=== PATIENT | female | born 1995 | race Caucasian/White ===

== ENCOUNTER 2021-04-25 10:03 | Emergency (ER) | payer BC, SELFPAY ==
--- NOTE | 2021-04-25 10:12 | ED.URI ---
HPI - URI/Sore Throat General Chief Complaint: Upper Respiratory Infection Stated Complaint: sore throat Time Seen by Provider: 04/25/21 10:16 Source: patient, RN notes reviewed and old records reviewed Mode of arrival: ambulatory Limitations: no limitations History of Present Illness HPI Narrative: 26-year-old female who presents to [facility] with complaints of sore throat since last night with some nasal drainage. Patient reports that she also has noted some white spots on the back of her throat on the right side. Patient states history of seasonal allergies and has had some nasal drainage increase, takes daily nasal sprays and also takes Zyrtec as needed. Patient states she has had tonsillectomy and adenoidectomy at age 11 but has had strep throat since having surgery. Patient reports she has been vaccinated for Contix vaccine x2 doses. Patient denies any fever chills or body aches denies any cough or any shortness of breath. MD elicited complaint: sore throat and rhinorrhea Pertinent past history: seasonal allergies and other (strep pharyngitis, sinus drainage) Onset (ago): day(s) (1) Description of mucous: clear Able to tolerate fluids by mouth: Yes Exacerbating factors: swallowing Treatments prior to arrival: none Related Data Home Medications Medication Instructions Recorded Confirmed Flonase 04/25/21 amlodipine 04/25/21 Allergies Allergy/AdvReac Type Severity Reaction Status Date / Time Penicillins Allergy Unknown Verified 04/25/21 10:15 Review of Systems Review of Systems: CONSTITUTIONAL: Denies fever, chills, or sweats. EYES: Denies visual changes, redness, or discharge. ENT: Positive for rhinorrhea, congestion, sore throat, no otalgia. CARDIOVASCULAR: Denies chest pain, palpitations, or edema. RESPIRATORY: Denies cough or dyspnea. GASTROINTESTINAL: Denies abdominal pain, nausea, vomiting, or diarrhea. GENITOURINARY: Denies dysuria or hematuria. SKIN: Denies rash or itching. MUSCULOSKELETAL: Denies back pain, joint pain, or myalgia. NEUROLOGIC: Denies headache, numbness, or weakness. PSYCHIATRIC: Positive for history of anxiety or depression. All systems reviewed & are unremarkable except as noted in HPI and below PMFSH Past Medical History Medical History (Updated 04/25/21 @ 10:34 by Rayne Dickey NP) Anxiety Hypertension Seasonal allergies Surgical History Surgical History (Updated 04/25/21 @ 10:32 by Rayne Dickey NP) History of tonsillectomy and adenoidectomy Hx of nasal septoplasty with rhinoplasty Family History Family History (Updated 04/25/21 @ 10:42 by Rayne Dickey NP) Father Hypertension Crohn's disease of both small and large intestine Mother Hypertension Breast cancer Grandparent Heart disease Social History Social History (Updated 04/25/21 @ 10:42 by Rayne Dickey NP) Smoking status: Never smoker Alcohol intake: current Alcohol use details: social Substance use: never Living arrangements: with family Gender identity (if verbalized by the patient): Female Comments At time of signature, agree with nursing past medical, surgical, social and family history. There is no relevant family history pertinent to the presenting complaint Exam Narrative: GENERAL: Well-appearing, well-nourished, and in no acute distress. HEAD: Normocephalic, atraumatic. EYES: PERRLA and EOMI. ENT: Nares patent with clear rhinorrhea no epistaxis. Mucous membranes moist.TM's normal with good light reflex. throat red with white exudates to back of right side of throat, tonsils absent. NECK: Supple. no lymphadenopathy CHEST: Clear to auscultation. No respiratory distress.SAO2 100% on room air, no cough or any shortness of breath. HEART: Regular rate and rhythm. No murmur heard. Normal peripheral pulses. ABDOMEN: Soft, nontender, nondistended, normal active bowel sounds. EXTREMITIES: Normal range of motion. No edema. SKIN: Warm, dry, no rash. NEURO:
[2021-04-25 10:18] VITALS: BP 149/94; PULSE 119; RESP 18; TEMP 36.8; O2SAT 100
== END 2021-04-25 10:41 | disposition home or self-care (01) ==
PROVIDERS: Emergency Provider Registered Nurse
DX: J02.9 Acute pharyngitis, unspecified (principal); I10 Essential (primary) hypertension
CPT/HCPCS: 87081; 87880; 99213; G0463

== ENCOUNTER 2021-07-31 09:09 | Outpatient (CLI) | payer BC, SELFPAY ==
[2021-07-31 09:52] LABS: Beta HCG Quantitative 156.64 mIU/ML
== END 2021-07-31 09:10 | disposition home or self-care (01) ==
LOC: ANHLAB 09:10
PROVIDERS: PCP Family Medicine; Visit Provider Obstetrics & Gynecology
DX: N91.2 Amenorrhea, unspecified (principal)
CPT/HCPCS: 36415; 84702

== ENCOUNTER 2021-08-04 18:51 | Emergency (ER) | payer BC, SELFPAY ==
--- NOTE | 2021-08-04 18:53 | ED.FEMALEGU ---
HPI - Female Genitourinary General Chief complaint: Urogenital-Female Stated complaint: UTI SYMPTOMS Time Seen by Provider: 08/04/21 19:06 Source: patient Mode of arrival: ambulatory Limitations: no limitations History of Present Illness HPI Narrative: Mrs. Robles is a 26-year-old female patient presenting to the clinic today with complaints of possible UTI. She reports she has urinary frequency, dark urine, and blood in her urine. She is currently 4 weeks . Also reports some mild abdominal cramping a couple days. Reports that the abdominal cramping only occurs at nighttime when she is laying down on her left side. States that she wiped today after urinating she had a little spot of blood on the toilet paper. Thinks that the blood is coming from her urethra and not her vagina. Denies any active vaginal bleeding or abdominal cramping currently. Related Data Home Medications Medication Instructions Recorded Confirmed azelastine 137 mcg (0.1 %) nasal 137 mcg INTRANASAL Q12H 06/03/21 07/08/21 spray aerosol fluticasone propionate 50 1 spray INTRANASAL DAILY 06/03/21 07/08/21 mcg/actuation nasal spray,suspension amlodipine 5 mg tablet 5 mg PO DAILY 07/08/21 07/08/21 Allergies Allergy/AdvReac Type Severity Reaction Status Date / Time Penicillins Allergy Unknown Verified 07/08/21 16:28 Review of Systems Review of Systems: Pertinent positives per HPI. Patient denies any fever, chills, rash, headache, visual changes, dizziness, cough, runny nose, sore throat, shortness of breath, chest pain, palpitations, nausea, vomiting, diarrhea, constipation, or blood in stool. [facility] Past Medical History Medical History Anxiety Hypertension Ovarian dysfunction Seasonal allergies Surgical History Surgical History History of tonsillectomy and adenoidectomy Hx of nasal septoplasty with rhinoplasty Family History Family History Father Hypertension Crohn's disease of both small and large intestine Mother Hypertension Breast cancer Grandparent Heart disease Social History Social History Social History: Smoking status: Never smoker Alcohol intake: current Drinks per week: 2 Substance use: never Substance use type: does not use Gender identity (if verbalized by the patient): Female Sexual Orientation (if Verbalized by the Patient): Straight or Heterosexual Comments At the time of my signature, I reviewed and agree with the nursing past medical, surgical, social, and family history. There is no relevant family history pertinent to the patient complaint. Exam Narrative: General: Well-developed, well nourished, in no apparent distress. Cardio: Regular rate and rhythm, s1 and s2 normal, no murmur appreciated. Resp: Clear to auscultation bilaterally, no rhonchi, rales, wheezing or rubs. Abdomen: Soft, pliable, bowel sounds present in all quadrants, non-tender to palpation, no organomegly, no suprapubic tenderness or pain over the adnexa, no CVAT tenderness. Course Course Emergency Course: Portions of this record may have been created with voice recognition software. Level of Care: Express Care Visit Vital Signs Vital signs: Vital signs reviewed MDM - Female Genitourinary MDM Narrative Medical decision making narrative: On assessment patient is nontoxic-appearing and resting comfortably. UA dip was completed and was negative for blood, protein, leukocytes, or nitrates. Specific gravity was 1.020. When further interviewing the patient she reports she noted some blood in her underwear today near where her urethra is so she is convinced that this is not coming from her vagina. She denies any abdominal pain or cramping at this time. S
[2021-08-04 19:00] VITALS: BP 157/88; PULSE 121; RESP 18; TEMP 36.9; O2SAT 100
== END 2021-08-04 19:25 | disposition home or self-care (01) ==
PROVIDERS: Emergency Provider Nurse Practitioner Family; PCP Family Medicine
DX: O46.91 Antepartum hemorrhage, unspecified, first trimester (principal); Z3A.01 Less than 8 weeks gestation of pregnancy; O10.911 Unspecified pre-existing hypertension complicating pregnancy, first trimester
CPT/HCPCS: 81003; 99212; G0463

== ENCOUNTER 2021-08-17 16:02 | Outpatient (CLI) | payer BC, SELFPAY ==
--- NOTE | ~2021-08-17 | US_ITS ---
EXAMINATION: US OB <=14 wk fetus w TV DATE: 08/17/2021 16:48 INDICATION: Status post dating of during first trimester TECHNIQUE: Real-time pelvic ultrasound utilizing both a transvaginal and transabdominal probe was pe rformed. The interpreting radiologist was not present for the study. COMPARISON: None. FINDINGS: The uterus measures 8.0 x 4.8 x 4.9 cm. There is an intrauterine gestational sac. A yolk sac and fet al pole are identified. The crown rump length measures 4 mm, which correlates with an estimated gesta tional age of 6 weeks and 0 days. heart motion is identified measuring 101 beats per minute (bp m) by M-mode Doppler. The right ovary measures 3.4 x 1.9 x 2.1 cm. The left ovary measures 3.3 x 2.0 x 2.4 cm. Vascular moose w with arterial waveforms identified in both ovaries on color Doppler. There is no free fluid in the pelvis. IMPRESSION: 1. Single living fetus with heart rate of 101 bpm. 2. Gestational age by ultrasound of 6 weeks 0 day(s) +/- 4 day(s) with ultrasound estimated date of delivery (JEFF) of 06/12/2021. Reviewed, dictated and finalized at location A. IMPRESSION: 1. Single living fetus with heart rate of 101 bpm. 2. Gestational age by ultrasound of 6 weeks 0 day(s) +/- 4 day(s) with ultraso und estimated date of delivery (JEFF) of 06/12/2021.
== END 2021-08-17 16:03 | disposition home or self-care (01) ==
LOC: ANHIMG 16:03
PROVIDERS: PCP Family Medicine; Visit Provider Obstetrics & Gynecology
DX: Z34.91 Encounter for supervision of normal pregnancy, unspecified, first trimester (principal); Z3A.01 Less than 8 weeks gestation of pregnancy
CPT/HCPCS: 76801; 76817

== ENCOUNTER 2021-08-26 16:22 | Outpatient (CLI) | payer BC, SELFPAY | END 2021-08-26 16:23 | disposition home or self-care (01) | LOC: ANHLAB 16:23 | PROVIDERS: PCP Family Medicine; Visit Provider Obstetrics & Gynecology | DX: O20.0 Threatened abortion (principal) | CPT/HCPCS: 36415; 86850; 86900; 86901 ==

== ENCOUNTER 2021-09-02 15:18 | Outpatient (CLI) | payer BC, SELFPAY ==
--- NOTE | ~2021-09-02 | US_ITS ---
US OB <=14 wk fetus w TV DATE: 09/02/2021 15:48 INDICATION: Threatened TECHNIQUE: Real-time imaging and Doppler analysis COMPARISON: 08/17/2021 obstetrical ultrasound examination FINDINGS: Live singh intrauterine gestation. pole and yolk sac are identified. [place]-rump l ength of 1.4 cm, consistent with 8 weeks 2 days +/- 5 days estimated gestational age. heart rat e of 171 bpm. Right ovary 2.7 x 2.0 x 2.0 cm. Left ovary 2.8 x 1.7 x 2.9 cm. No pelvic mass or abnormal pelvic fluid collection is detected. IMPRESSION: Estimated gestational age of 8 weeks 2 days +/- 5 days Reviewed, dictated and finalized at Location [facility]. Reviewed, dictated and finalized at location A.
== END 2021-09-02 15:19 ==
PROVIDERS: Visit Provider Student in an Organized Health Care Education/Training Program
DX: O20.0 Threatened abortion (principal); Z3A.00 Weeks of gestation of pregnancy not specified
CPT/HCPCS: 76801; 76817

== ENCOUNTER → 2021-09-17 01:25 | Outpatient (CLI) | payer BC, SELFPAY ==
[2021-09-17 11:02] LABS: Influenza A QL RT-PCR Negative (Negative); Influenza B QL RT-PCR Negative (Negative); SARS-CoV-2 RNA PCR Negative
== END ==
PROVIDERS: PCP Family Medicine; Visit Provider Family Medicine
DX: R68.89 Other general symptoms and signs (principal); Z20.822 Contact with and (suspected) exposure to COVID-19
CPT/HCPCS: 87502; C9803; U0003; U0005

== ENCOUNTER 2021-09-21 15:52 | Outpatient (CLI) | payer BC, SELFPAY ==
--- NOTE | ~2021-09-21 | US_ITS ---
US OB <=14 wk fetus w TV DATE: 09/21/2021 16:45 INDICATION: Vaginal spotting complicating first trimester TECHNIQUE: Real-time imaging via transabdominal approach COMPARISON: September 02, 2021 obstetrical ultrasound FINDINGS: The uterus measures 14.7 cm height, 6.3 cm anteroposterior and 10 cm transverse dimension. An intrauterine gestational sac is noted, normally shaped, with posterior placenta. Normal amount of amniotic fluid. A pole is noted, with movement and cardiac motion; Doppler heart rate ave rages 163 bpm. There is an approximately 1.9 x 2.3 x 1.6 cm posteroinferior subchorionic hematoma No adnexal mass or abnormal free pelvic fluid collection is detected. IMPRESSION: 1.9 x 2.3 x 1.6 mm subchorionic hematoma Reviewed, dictated and finalized at [facility]. Reviewed, dictated and finalized at location A.
== END 2021-09-21 15:53 | disposition home or self-care (01) ==
LOC: ANHIMG 15:54
PROVIDERS: PCP Family Medicine; Visit Provider Student in an Organized Health Care Education/Training Program
DX: O26.851 Spotting complicating pregnancy, first trimester (principal); Z3A.00 Weeks of gestation of pregnancy not specified
CPT/HCPCS: 76801; 76817

== ENCOUNTER 2021-10-10 13:44 | Emergency (ER) | payer BC, SELFPAY ==
[2021-10-10 13:46] VITALS: BP 141/81; PULSE 80; RESP 18; TEMP 36.5; O2SAT 100
[2021-10-10 14:05] VITALS: BP 127/73; PULSE 81; RESP 20; O2SAT 100
--- NOTE | 2021-10-10 14:10 | ED.GENADULT ---
HPI - General Adult General Chief complaint: Recheck/Abnormal Lab/Rx Stated complaint: my bp dropped really low, 14 weeks preg Time Seen by Provider: 10/10/21 13:54 Source: patient, family, EMS and RN notes reviewed Mode of arrival: EMS Limitations: no limitations History of Present Illness HPI narrative: Patient is 26 years old white female 13 weeks and 5 days , 1, para 0, abortions 0 history of anxiety and panic attack, currently on Lexapro. Patient was sitting suddenly started feeling hot, stood up and could not see straight and feels like she is going to blackout. Patient took her blood pressure and was 60/40, called her to call 911. Ambulance arrived, blood pressure was within normal limit. Blood pressure was on arrival to the emergency room 141/81 Related Data Home Medications Medication Instructions Recorded Confirmed prenat.vits,janae,wtg-ezkf-wgzum 1 tablet PO DAILY 08/10/21 08/10/21 ferrous sulfate 325 mg (65 mg 325 mg PO DAILY 09/14/21 iron) tablet,delayed release labetalol 100 mg tablet 100 mg PO Q12H 09/14/21 Allergies Allergy/AdvReac Type Severity Reaction Status Date / Time Penicillins Allergy Unknown Rash, Verified 10/10/21 14:05 swelling nifedipine AdvReac Palpitation Verified 10/10/21 14:05 s Review of Systems Review of Systems: All systems reviewed & are unremarkable except as noted in HPI and below PMFSH Past Medical History Medical History Anxiety Depression Hyperlipidemia Hypertension Panic disorder Seasonal allergies Surgical History Surgical History History of tonsillectomy and adenoidectomy 2006 Hx of nasal septoplasty 2020, with rhinoplasty [place] teeth extracted Family History Family History Father Hypertension Crohn's disease of both small and large intestine Alcoholism Mother Hypertension Breast cancer Dx age 18 Alcoholism Anxiety and depression Grandparent Heart disease Anxiety and depression Hypertension Sibling Anxiety and depression PCOS (polycystic ovarian syndrome) Social History Social History Social History: Smoking status: Never smoker Alcohol intake: former Drinks per week: 2 Substance use: never Gender identity (if verbalized by the patient): Female Sexual Orientation (if Verbalized by the Patient): Straight or Heterosexual Agree to blood products: Yes Exam Narrative: General appearance: Well-developed, well-nourished Skin: Normal color Head: Normocephalic, nontraumatic Eyes: Clear conjunctiva ENT: Oropharynx normal, ears normal, nose normal Neck: Supple, nontender Chest and respiratory: Airway patent, no respiratory distress, no accessory muscle use Heart: Regular rate/rhythm Abdomen: Soft, nontender, no organomegaly, quiet bowel sounds Vascular: Normal peripheral pulses, normal capillary refill. Musculoskeletal: Normal range of motion, nontender back Neurologic: Alert and oriented ?3, HEALTH AND SAFETY TECHNICIAN is normal as tested, no gross motor deficit Course Course Emergency Course: Improved Panic attack is my concern. Patient likely could not see the number of the blood pressure accurately. The ambulance arrived within 3 to 5 minutes after her blood pressure reading and EMT reported that blood pressure was normal on arrival to her house. Vital Signs Vital signs: Vital Signs Temperature 36.5 C 10/10/21 13:46 Pulse Rate 80 10/10/21 13:46 Respiratory Rate 18 10/10/21 13:46 Bloo
--- NOTE | 2021-10-10 14:12 | ECG_ITS ---
Measurements Intervals [place] Rate: 78 P: 6 [place]: 142 QRS: 1 QRSD: 90 T: -3 QT: 384 QTc: 439 Interpretive Statements SINUS RHYTHM LOW QRS VOLTAGE IN PRECORDIAL LEADS CONSIDER INFERIOR INFARCT, AGE INDETERMINATE BORDERLINE T WAVE ABNORMALITY- ANTEROLATERAL LEADS BASELINE ARTIFACT- I, II, III, AVR, AVL, AVF, V1, V4-V5 ABNORMAL ECG Electronically Signed On 10-10-2021 20:10:21 CDT by Bird Quarles D.O.
[2021-10-10 14:39] LABS: Basophils Percent Auto 0.3 % (0.2-1.2); Eosinophils Absolute Auto 0.1 K/mm3 (0-0.3); Eosinophils Percent Auto 0.7 % (0-4.4); Hematocrit 30.5 % (37.0-47.0); Hemoglobin 10.8 g/dL (12.0-15.0); Immature Granulocyte Absolute 0.03 K/mm3 (0.00-0.031); Immature Granulocyte Percent A 0.3 % (0-0.5); Lymphocytes Absolute Auto 1.27 K/mm3 (0.9-3.2); Lymphocytes Percent Auto 14.7 % (18.3-44.2); Mean Corpuscular HGB Conc 35.4 g/dl (32-36); Mean Corpuscular Hemoglobin 30.4 pg (26-34); Mean Corpuscular Volume 85.9 fl (80-100); Mean Platelet Volume 9.9 fl (7.4-10.4); Monocytes Absolute Auto 0.6 K/mm3 (0.1-0.6); Monocytes Percent Auto 6.6 % (2.6-8.5); Neutrophils Absolute Auto 6.7 K/mm3 (1.3-6.7); Neutrophils Percent Auto 77.4 % (45.5-73.1); Platelet Count Result 242 k/mm3 (150-375); Red Blood Count 3.55 M/mm3 (4.2-5.4); Red Cell Distribution Width 12.8 % (11.5-14.5); White Blood Count 8.7 K/mm3 (4.5-10.0)
[2021-10-10] MEDS: SODIUM CHLORIDE 0.9% IV 1,000 ML 999 ML IV CONT (14:52)
[2021-10-10 14:56] LABS: Appearance Urine Clear (Clear); Bilirubin Urine Negative (Negative); Blood Urine Negative (Negative); Color Urine Yellow (Yellow); Glucose Urine UA Negative (Negative); Ketones Urine Negative (Negative); Leukocyte Esterase Ur Trace LEU/UL (Negative); Nitrate Urine Negative (Negative); Protein Urine Negative (Negative); Urobilinogen Urine 0.2 mg/dL (<2.0); pH Urine 6.5 (5.0-9.0)
[2021-10-10 14:58] LABS: Alanine Aminotransferase 9 U/L (6-35); Albumin Level 4.1 g/dL (3.5-5.1); Alkaline Phosphatase 62 U/L (38-126); Anion Gap 8 mmol/L (8-16); Aspartate Amino Transferase 20 U/L (14-36); Bilirubin,Total 0.3 mg/dL (0.2-1.3); Blood Urea Nitrogen 4 mg/dL (7-17); Calcium 8.8 mg/dL (8.4-10.2); Carbon Dioxide 19 mmol/L (22-30); Chloride 108 mmol/L (98-107); Estimated Glomerular Filt Rate > 60; Glucose 96 mg/dL (65-110); Potassium 3.6 mmol/L (3.4-5.0); Sodium 135 mmol/L (137-145)
[2021-10-10 15:01] LABS: Bacteria Urine Trace /hpf; Mucus Urine Rare /lpf; RBC Urine 0-2 /hpf (0-2); Squamous Epithelial Cell Urine Few /hpf (Few); WBC Urine 0-3 /hpf
[2021-10-10 15:02] LABS: Add Urine Microscopic? YES
== END 2021-10-10 15:56 | disposition home or self-care (01) ==
PROVIDERS: Emergency Provider Emergency Medicine; PCP Family Medicine
DX: O99.341 Other mental disorders complicating pregnancy, first trimester (principal); F41.0 Panic disorder [episodic paroxysmal anxiety]; F32.A Depression, unspecified; O10.911 Unspecified pre-existing hypertension complicating pregnancy, first trimester; O99.281 Endocrine, nutritional and metabolic diseases complicating pregnancy, first trimester; E78.5 Hyperlipidemia, unspecified; Z3A.13 13 weeks gestation of pregnancy
CPT/HCPCS: 36415; 80053; 81001; 85025; 93005; 96360; 99283; J7030

== ENCOUNTER 2021-11-09 17:01 | Outpatient (CLI) | payer BC, SELFPAY ==
[2021-12-10 10:38] LABS: hCG MoM 1.52
[2021-12-10 10:46] LABS: Number of Fetuses 1
[2021-12-10 10:48] LABS: Cigarette Smoker N
[2021-12-10 10:49] LABS: IVFPREG? N
== END 2021-11-09 17:02 | disposition home or self-care (01) ==
LOC: ANHLAB 17:02
PROVIDERS: PCP Family Medicine; Visit Provider Obstetrics & Gynecology
DX: Z34.02 Encounter for supervision of normal first pregnancy, second trimester (principal); Z3A.00 Weeks of gestation of pregnancy not specified
CPT/HCPCS: 36415; 82105; 82677; 84702; 86336

== ENCOUNTER 2022-01-15 07:31 | Outpatient (CLI) | payer BC, SELFPAY ==
[2022-01-15 09:07] LABS: Hematocrit 30.2 % (37.0-47.0); Hemoglobin 10.4 g/dL (12.0-15.0); Mean Corpuscular HGB Conc 34.4 g/dl (32-36); Mean Corpuscular Hemoglobin 30.6 pg (26-34); Mean Corpuscular Volume 88.8 fl (80-100); Mean Platelet Volume 10.4 fl (7.4-10.4); Platelet Count Result 228 k/mm3 (150-375); Red Cell Distribution Width 13.2 % (11.5-14.5); White Blood Count 10.7 K/mm3 (4.5-10.0)
[2022-01-15 09:22] LABS: Glucose 1 Hour PP 50gm Dose 148 mg/dL
[2022-01-15 10:17] LABS: HIV 1/2 Ab P24 Ag Result Negative (Negative)
== END 2022-01-15 07:32 | disposition home or self-care (01) ==
LOC: ANHLAB 07:32
PROVIDERS: PCP Family Medicine; Visit Provider Obstetrics & Gynecology
DX: Z34.90 Encounter for supervision of normal pregnancy, unspecified, unspecified trimester (principal)
CPT/HCPCS: 36415; 82947; 85027; 86703; G0432

== ENCOUNTER 2022-01-27 06:51 | Outpatient (CLI) | payer BC, SELFPAY ==
[2022-01-27 07:14] LABS: Glucose Fasting Gestational 80 mg/dL (>/=95)
[2022-01-27 08:35] LABS: Glucose 1 Hour Gest 204 mg/dL (>/=180)
[2022-01-27 09:50] LABS: Glucose 2 Hour Gest 165 mg/dL (>/= 155)
[2022-01-27 10:29] LABS: Glucose 3 Hour Gest 118 mg/dL (>/=140)
== END 2022-01-27 06:52 | disposition home or self-care (01) ==
LOC: ANHLAB 06:54
PROVIDERS: PCP Family Medicine; Visit Provider Obstetrics & Gynecology
DX: R73.09 Other abnormal glucose (principal)
CPT/HCPCS: 36415; 82951; 82952

== ENCOUNTER 2022-03-22 21:06 | Inpatient (IN) | payer BC, SELFPAY ==
[2022-03-22 21:22] VITALS: BP 157/106; PULSE 97; TEMP 36.6
[2022-03-22 21:31] VITALS: BP 146/90; PULSE 84
[2022-03-22 21:46] VITALS: BP 140/79; PULSE 85
[2022-03-22 21:52] VITALS: BMI 74.3
--- NOTE | 2022-03-22 22:00 | LDADM ---
This patient, Kae Robles, was admitted to Labor/Delivery/Recovery 106 on 03/22/22 at 21:06. Plans for labor, pain management and were discussed with patient. Patient/family oriented to hospital policies and general routines including ID bracelet, bed and alarms, visiting hours, pain management, procedures, bathroom and other care routines, personal items, smoking policy, room service/diet and guest tray routines, infant security routines, and visiting hours. Patient/Family are encouraged to report perceived risks to care and to ask questions if they do not understand what they are told or what they should do. See OBIX for further documentation.
[2022-03-22 22:01] VITALS: BP 139/80; PULSE 88
[2022-03-22 22:25] LABS: Basophils Absolute Auto 0.1 K/mm3 (0.0-0.1); Basophils Percent Auto 0.5 % (0.2-1.2); Eosinophils Absolute Auto 0.1 K/mm3 (0-0.3); Eosinophils Percent Auto 0.5 % (0-4.4); Hematocrit 35.4 % (37.0-47.0); Hemoglobin 12.3 g/dL (12.0-15.0); Immature Granulocyte Absolute 0.12 K/mm3 (0.00-0.031); Immature Granulocyte Percent A 1.1 % (0-0.5); Lymphocytes Absolute Auto 2.36 K/mm3 (0.9-3.2); Lymphocytes Percent Auto 22.2 % (18.3-44.2); Mean Corpuscular HGB Conc 34.7 g/dl (32-36); Mean Corpuscular Hemoglobin 30.7 pg (26-34); Mean Corpuscular Volume 88.3 fl (80-100); Monocytes Absolute Auto 0.6 K/mm3 (0.1-0.6); Neutrophils Absolute Auto 7.4 K/mm3 (1.3-6.7); Neutrophils Percent Auto 69.7 % (45.5-73.1); Platelet Count Result 242 k/mm3 (150-375); Red Blood Count 4.01 M/mm3 (4.2-5.4); Red Cell Distribution Width 13.9 % (11.5-14.5); White Blood Count 10.6 K/mm3 (4.5-10.0)
[2022-03-22 22:56] LABS: Alanine Aminotransferase 14 U/L (6-35); Albumin Level 3.9 g/dL (3.5-5.1); Alkaline Phosphatase 152 U/L (38-126); Anion Gap 11 mmol/L (8-16); Aspartate Amino Transferase 20 U/L (14-36); Bilirubin,Total 0.4 mg/dL (0.2-1.3); Blood Urea Nitrogen 9 mg/dL (7-17); Calcium 9.5 mg/dL (8.4-10.2); Carbon Dioxide 20 mmol/L (22-30); Chloride 105 mmol/L (98-107); Estimated Glomerular Filt Rate > 60; Glucose 99 mg/dL (65-110); Potassium 3.6 mmol/L (3.4-5.0); Sodium 136 mmol/L (137-145); Uric Acid 5.6 mg/dL (2.5-7.5)
[2022-03-22 23:17] VITALS: TEMP 36.4
[2022-03-22] MEDS: LACTATED RINGERS 1,000 ML 999 ML IV CONT (23:58)
[2022-03-23] VITALS (118 sets, daily range): BP systolic 98–162; BP diastolic 51–105; PULSE 72–138; RESP 16–20; TEMP 36.5–37; O2SAT 98–100
--- NOTE | 2022-03-23 00:30 | WPDANESEPP ---
Anes - Eval Pre Procedure Procedure: labor epidural Date/Time: 03/23/22 00:30 Pre Op Diagnosis: Leaking Patient Data Age: 26 Gender: F Height: 1.5 m Weight: 167 kg Last Vital Signs Temp 36.4 C 03/22/22 23:17 Pulse 88 03/22/22 22:01 BP 139/80 03/22/22 22:01 O2 Del Method Room Air 03/22/22 21:52 Allergies Allergy/AdvReac Type Severity Reaction Status Date / Time Penicillins Allergy Unknown Rash, Verified 03/22/22 22:10 swelling nifedipine AdvReac Palpitation Verified 03/22/22 22:10 s Home Medications Medication Instructions Recorded Confirmed Type prenat.vits,janae,vlp-wqqt-twila 1 tablet PO DAILY 08/10/21 03/22/22 History ferrous sulfate 325 mg (65 mg 325 mg PO DAILY 09/14/21 03/22/22 History iron) tablet,delayed release aspirin 81 mg tablet,delayed 81 mg PO DAILY 11/01/21 03/22/22 History release escitalopram oxalate 10 mg tablet 15 mg PO DAILY #45 tabs 01/10/22 03/22/22 Rx (Lexapro) Laboratory Tests 03/22/22 03/22/22 03/22/22 22:12 22:12 22:12 WBC 10.6 K/mm3 H K/mm3 (4.5-10.0) RBC 4.01 M/mm3 L M/mm3 (4.2-5.4) Hgb 12.3 g/dL g/dL (12.0-15.0) Hct 35.4 % L % (37.0-47.0) MCV 88.3 fl fl (80-100) MCH 30.7 pg pg (26-34) MCHC 34.7 g/dl g/dl (32-36) RDW 13.9 % % (11.5-14.5) Plt Count 242 k/mm3 k/mm3 (150-375) MPV 11.0 fl H fl (7.4-10.4) Immature Gran % (Auto) 1.1 % H % (0-0.5) Neut % (Auto) 69.7 % % (45.5-73.1) Lymph % (Auto) 22.2 % % (18.3-44.2) Sunflower % (Auto) 6.0 % % (2.6-8.5) Eos % (Auto) 0.5 % % (0-4.4) Baso % (Auto) 0.5 % % (0.2-1.2) Lymph # (Auto) 2.36 K/mm3 K/mm3 (0.9-3.2) Sunflower # (Auto) 0.6 K/mm3 K/mm3 (0.1-0.6) Eos # (Auto) 0.1 K/mm3 K/mm3 (0-0.3) Baso # (Auto) 0.1 K/mm3 K/mm3 (0.0-0.1) Abs Immat Gran (auto) 0.12 K/mm3 H K/mm3 (0.00-0.031) Absolute Neuts (auto) 7.4 K/mm3 H K/mm3 (1.3-6.7) Absolute Nucleated RBC 0.0 K/mm3 K/mm3 (0.0-0.012) Nucleated RBC % 0.0 % % (0.0-0.2) Sodium Potassium Chloride Carbon Dioxide Anion Gap BUN Creatinine Estim Creat Clear Calc Estimated GFR Glucose Uric Acid Calcium Total Bilirubin AST ALT Alkaline Phosphatase Total Protein Albumin RPR Pending Blood Type A Positive Antibody Screen Negative 03/22/22 22:12 WBC RBC Hgb Hct MCV MCH MCHC RDW Plt Count MPV Immature Gran % (Auto) Neut % (Auto) Lymph % (Auto) Sunflower % (Auto) Eos % (Auto) Baso % (Auto) Lymph # (Auto) Sunflower # (Auto) Eos # (Auto) Baso # (Auto) Abs Immat Gran (auto) Absolute Neuts (auto) Absolute Nucleated RBC Nucleated RBC % Sodium 136 mmol/L L mmol/L (137-145) Potassium 3.6 mmol/L mmol/L (3.4-5.0) Chloride 105 mmol/L mmol/L (98-107) Carbon Dioxide 20 mmol/L L mmol/L (22-30) Anion Gap 11 mmol/L mmol/L (8-16) BUN 9 mg/dL D mg/dL (7-17) Creatinine 0.50 mg/dL L mg/dL (0.7-1.0) Estim Creat Clear Calc Not Reportable Estimated GFR > 60 (59 - ) Glucose 99 mg/dL mg/dL (65-110) Uric Acid 5.6 mg/dL mg/dL (2.5-7.5) Calcium 9.5 mg/dL mg/dL (8.4-10.2) Total Bilirubin 0.4 mg/dL mg/dL (0.2-1.3) AST 20 U/L U/L (14-36) ALT 14 U/L U/L (6-35) Alkaline Phosphatase 152 U/L H U/L (38-126) Total Protein 7.0 g/dL g/dL (6.3-8.2) Albumin 3.9 g/dL g/dL (3.5-5.1) RPR Blood Type Antibod
[2022-03-23] MEDS: LACTATED RINGERS 1,000 ML 125 ML IV CONT (00:32)
[2022-03-23] MEDS: OXYTOCIN 30 UNITS/NS 500 ML 30 UNITS/500 ML BAG IV CONT (02:40)
--- NOTE | 2022-03-23 04:53 | WPDHPUPDATE1 ---
History and Physical Update Update Date/Time: 03/23/22 04:53 History and Physical has been reviewed, including an updated exam of the patient. There are NO changes in the patient's condition. Risks, benefits, and alternatives have been discussed and questions answered. Patient agrees to proceed with procedure.
--- NOTE | 2022-03-23 04:53 | WPDOBADMIT ---
Obstetrics - Admit Note Admission Note: record reviewed. No pertinent additions to the history and/or any subsequent changes in the physical findings that are not consistent with the expected course of the were found. Additions to the history and/or subsequent changes in the physical findings follow. None.
--- NOTE | 2022-03-23 04:53 | PM.OBPRVD ---
OB - Delivery Note Procedure Events: Chronic Hypertension and Gestational Diabetes Induction method: None Delivery augmentation: Pitocin Delivery monitor: External FHT and External Uterine Route of delivery: Episiotomy description: None Laceration Description: None Specimen: Yes Quantitative Blood Loss (ml): 200 Anesthesia type: Epidural Disposition: Floor Complications: None Narrative: patient prepped and draped in usual manner this procedure. Maternal expulsive efforts readily vertex with nuchal cord noted and delivered through. Rest of baby was delivered without difficulty. Cord clamped and the placenta delivered spontaneously. There was minimal bleeding and the uterus was well contracted. Cervix vagina vulva were inspected with no lacerations or tears. 2-3 center hematoma was on the perineum which was monitored and not changing. At this point the procedure was considered terminated with immediate possible operative condition of mother baby both excellent. [place] Baby Weeks of gestation at delivery: 37 gender: Female Weight (pounds): 6 Weight (ounces): 6 presentation: vertex Placenta delivery description: Spontaneous Cord Vessel Description: 3 Vessels score one minute: 7 score five minutes: 9
[2022-03-23] MEDS: WITCH HAZEL 40 PADS 1 PAD TOPICAL (07:04)
[2022-03-23] MEDS: BENZOCAINE 20% AER SPR (*SP) 56 GM CAN 1 SPRAY TOPICAL (07:04)
--- NOTE | 2022-03-23 07:25 | PC.NURSE ---
Patient transferred to post room #283 via (wheelchair ). Support person present. Oriented to unit, room, information board, rooming in, admission packet and security measures. Patient verbalizes understanding.
[2022-03-23] MEDS: MULTIVIT/MIN/PREN/FOL AC/IRON TABLET 1 TAB PO (08:02)
[2022-03-23] MEDS: DOCUSATE SODIUM 100 MG CAPSULE PO ×2 (08:02→16:01)
[2022-03-23] MEDS: ESCITALOPRAM OXALATE 5 MG TABLET 15 MG PO (08:02)
[2022-03-23] MEDS: LANOLIN (LANSINOH) 7.5 GM CREAM 1 APPLIC TOPICAL (08:03)
--- NOTE | 2022-03-23 09:22 | PC.NURSE ---
[id number] Introductions were made, then consulted with patient to assess needs related to . Mother led the conversation with infant is downstairs and she is pumping and not getting anything. Breast pump provided prior to meeting RN due to separation from . Instructions given on cleaning, care, usage, that there should be no pain, pumping schedule for milk production, collection, and storage of human milk. Reviewed for adequate milk production every 3 hours (8 times in 24 hours) 1-2 times at night. Resources provided for inpatient and outpatient services using a resource guide and mom/baby guide. Mother voiced understanding of information and will call if there is a request for assistance. Reported to primary RN.
[2022-03-23 15:05] LABS: Rapid Plasma Reagin Non-Reactive (NonReactive)
[2022-03-23] MEDS: IBUPROFEN 600 MG TABLET PO (17:14)
[2022-03-24] VITALS: BP 132/84; PULSE 82; RESP 16; TEMP 36.9; O2SAT 100
[2022-03-24 04:10] VITALS: BP 120/80; PULSE 72; RESP 16; TEMP 36.5; O2SAT 100
[2022-03-24 05:40] LABS: Hematocrit 30.8 % (37.0-47.0); Hemoglobin 10.3 g/dL (12.0-15.0)
[2022-03-24 06:05] VITALS: BP 152/96; PULSE 86
[2022-03-24] MEDS: IBUPROFEN 600 MG TABLET PO (06:05)
--- NOTE | 2022-03-24 06:05 | PC.NURSE ---
Pt states she is feeling a bit anxious this morning and requested bp be taken. Pt states she can tell when her anxiety rises and then her bp rises also. Pt states she was taking amlodipine 5mg qd prior to for her chronic htn and was switched to labetalol 100mg BID with . Currently, pt is not taking routine daily bp meds. Current bp 152/96, 86 Report given to BHARATI Monroe regarding pt's concerns and informed pt to also discuss with Dr. Brennan today on rounds if medication needs to be restarted.
[2022-03-24 07:30] VITALS: BP 117/72; PULSE 68; RESP 16; TEMP 36.3; O2SAT 100
--- NOTE | 2022-03-24 09:22 | WPDANLDPN2 ---
Anes-Prog Note L&D Date/Time: 03/24/22 09:22 Comfortable throughout: labor and delivery Neuraxial method: epidural Epidural/Spinal procedure site: clean & non-tender Neuro status: Neuro function grossly intact. Cardiovascular status: normal Respiratory status: normal Airway patency: baseline Mental status: baseline Post-Op hydration status: normal Vital Signs: Last Vital Signs Temp 36.3 C L 03/24/22 07:30 Pulse 68 03/24/22 07:30 Resp 16 03/24/22 07:30 BP 117/72 03/24/22 07:30 Pulse Ox 100 03/24/22 07:30 O2 Del Method Room Air 03/23/22 19:45 Pain score (VAS): 3 I/O: Intake & Output 03/23/22 03/24/22 03/24/22 23:59 07:59 15:59 Intake Total 480 Balance 480 Post-procedural complaints: none Patient feedback: Patient satisfied with anesthetic care.
[2022-03-24] MEDS: DOCUSATE SODIUM 100 MG CAPSULE PO (09:33)
[2022-03-24] MEDS: ESCITALOPRAM OXALATE 5 MG TABLET 15 MG PO (09:33)
[2022-03-24] MEDS: MULTIVIT/MIN/PREN/FOL AC/IRON TABLET 1 TAB PO (09:33)
[2022-03-24 10:41] VITALS: BP 140/82; PULSE 80; RESP 16; TEMP 36.5; O2SAT 100
--- NOTE | 2022-03-24 11:18 | P.PNOB_ITS ---
OB - PN: Subj Subjective Date/time seen: 03/24/22 11:18 26-year-old female post delivery day 1. No significant complaints or concerns this morning, minimal bleeding and no significant pain. Did have a little li ghtheadedness when bending over the bathroom this morning but this has resolved. Vital signs are stable afebrile Fundus appropriate Labs noted Routine care. Will monitor blood pressure she has had 1 or 2 elevated borderline pressures post delivery. No symptoms of elevated pressure. OB - PN: Obj Data Labs CBC & Chem 7: 03/24/22 04:17 03/22/22 22:12 Labs: Laboratory Results - last 24 hr 03/22/22 03/24/22 22:12 04:17 Hgb 10.3 L Hct 30.8 L RPR Non-reactive OB - PN A/P Time Spent With Patient Time: Total time spent is greater than 50% in coordination of care (as documented) at patient's floor/unit and/or counseling patient:
--- NOTE | 2022-03-24 13:30 | PC.NURSE ---
[id number] Introductions were made, then consulted with patient to assess needs related to . Mother led the conversation with her?plan to feed?her with attempting to breastfeed, pumping her breast for milk stimulation due to not latching, then supplementing with formula. Mother states her right nipple is inverted and pumping pulls it out and there is no pain just suction like. Resources provided for inpatient and outpatient services using a resource guide and mom/baby guide. Mother voiced understanding of information and will call if there is a request for assistance. Reported to the primary RN.
[2022-03-24 19:52] VITALS: BP 134/89; PULSE 80; RESP 18; TEMP 36.9; O2SAT 99
[2022-03-25 07:20] VITALS: BP 116/77; PULSE 74; RESP 16; TEMP 36.8; O2SAT 100
--- NOTE | 2022-03-25 08:00 | PC.NURSE ---
PT introductions made and plan of care discussed per post , daily care activities, pain management, breast/bottle feeding, pumping, and pending discharge to home. PT and spouse both received instructions per one to one discussion, mom baby care guide and demonstrations this shift. No barriers to learning identified at this time. PT verbalized understanding of such care.
[2022-03-25 09:00] VITALS: PULSE 74; RESP 16; O2SAT 100
[2022-03-25] MEDS: ESCITALOPRAM OXALATE 5 MG TABLET 15 MG PO (10:09)
[2022-03-25] MEDS: MULTIVIT/MIN/PREN/FOL AC/IRON TABLET 1 TAB PO (10:10)
[2022-03-25] MEDS: DOCUSATE SODIUM 100 MG CAPSULE PO (10:10)
--- NOTE | 2022-03-25 13:22 | PM.OBDSVD ---
DS: Admitting Diagnosis Discharge Date 03/25/2022 Admitting Diagnosis OB - DS: Summary OB Procedures : NST OB Procedures Intrapartum: Spontaneous Vag Delivery OB Procedures: : None Time Spent with Patient Time attestation: Total time spent providing and/or coordinating discharge services: DS: Data Data Completed and Pending Completed studies during hospitalization: Pending at discharge 03/23/22 05:11 Surgical [PTH] Routine Discharge Plan Discharge Discharging Clinician: Roddy Brennan Patient Disposition: Home, Self-Care Activity: as tolerated Diet: as tolerated Discharge Instructions: Education: Mom and Baby Guide Given to: Mother Follow-Up: Call your delivering provider's office for an appointment to be seen in: 4 Weeks Mom and baby [facility] for the follow-up appointment. Appointment Date/Time: March 26, 2022 at 9:00 am What to expect at your follow-up visit: Blood Pressure Check Call [phone] if you are unable to keep your appointment time. BREAST CARE: * Wear a snug supportive bra. * For engorgement discomfort: Breast Feeding: * Apply warm moist washcloths * Express milk as needed to relieve engorgement * Wear loose clothing Bottle Feeding: * May apply ice packs * For sore nipples: * Identify correct latch-on * Apply warm moist washcloths before and after nursing * Air dry nipples after nursing * May apply Lansinoh cream to nipples PERINEAL CARE: * Until bleeding stops, use your karena bottle after urinating * Change your pad frequently throughout the day * You may take sitz baths several times a day (fill your bathtub with warm water and soak for 20 minutes.) Do NOT bathe in the water * No tub baths until seen by your physician - You may shower ACTIVITY: * Rest as much as possible. * Do not exercise or lift anything heavier than your baby (such as laundry or other children.) * Avoid stairs or driving as much as possible. * Do not put anything into the vagina. No douching, tampons, or sexual activity until seen by physician. NOTIFY PHYSICIAN IF YOU HAVE ANY QUESTIONS OR IF ANY OF THE FOLLOWING SYMPTOMS OCCUR: * If your perineum becomes red, swollen, or more painful than what you have experienced in the hospital. * If your vaginal bleeding becomes foul smelling. * If your vaginal bleeding becomes more heavy than a period or if your bleeding changes from pink to bright red. However, you may pass an occasional walnut-sized clot once or twice for the first week . * If you experience a sharp, shooting pain in you calves. * If you discover a hard, reddened area on your breast or if you experience flu-like symptoms. * If you have a fever of 100.4 or greater DIET: * Eat regular, well-balanced meals. * Drink plenty of fluids daily. If , drink to thirst. Patient Instructions: Antibiotic Form Stand Alone Forms: General Discharge Information Follow-up/Referrals: Roddy Brennan MD [Physician] - 3 Weeks Discharge Medications: New ibuprofen 600 mg Tablet 600 mg PO Q6H PRN (Reason: Cramping) Qty: 30 0RF Continued prenat.vits,janae,zyu-bvro-stuhu Tablet 1 tablet PO DAILY ferrous sulfate 325 mg (65 mg iron) tablet,delayed release (DR/EC) 325 mg PO DAILY escitalopram oxalate [Lexapro] 10 mg tablet 15 mg PO DAILY Qty: 45 3RF Discontinued aspirin 81 mg tablet,delayed release (DR/EC) 81 mg PO DAILY Date of admission: 03/22/22 21:06 Primary Care Provider: Edelmira Avila Admitting Provider: Roddy Brennan Attending physician on admission: Roddy Brennan Condition: Stable
--- NOTE | 2022-03-25 14:15 | PC.NURSE ---
Pt received discharge instructions per protocol and verbalized understanding of such care.
--- NOTE | 2022-03-25 14:40 | PC.NURSE ---
PT discharged to home ambulatory accompanied by spouse and and taken to waiting car. Follow up appts confirmed
[2022-03-26 09:29] VITALS: BP 136/86; PULSE 74; RESP 20; TEMP 36.8; O2SAT 99
== END 2022-03-25 14:40 | disposition home or self-care (01) | DRG 806 ==
LOC: ANHLDR 21:37 → ANHOB2 03-23 09:53
PROVIDERS: Admitting Provider Obstetrics & Gynecology; PCP Family Medicine; Visit Provider Obstetrics & Gynecology
DX: O24.429 Gestational diabetes mellitus in childbirth, unspecified control (principal); O71.7 Obstetric hematoma of pelvis; Z37.0 Single live birth; Z3A.37 37 weeks gestation of pregnancy; O16.4 Unspecified maternal hypertension, complicating childbirth; O69.81X0 Labor and delivery complicated by cord around neck, without compression, not applicable or unspecified
CPT/HCPCS: 36415; 80053; 84550; 85014; 85018; 85025; 86592; 86850; 86900; 86901; 88307; A9270; J2590; J2795; J7120

== ENCOUNTER 2022-05-12 20:04 | Emergency (ER) | payer BC, SELFPAY ==
[2022-05-12 20:22] VITALS: BP 140/90; PULSE 100; RESP 16; TEMP 37.4; O2SAT 100
--- NOTE | 2022-05-12 23:01 | PC.NURSE ---
patient left at this time states she will see her ob in the am as she needs to go home to feed her baby
== END 2022-05-12 23:25 | disposition left against medical advice (07) ==
PROVIDERS: PCP Family Medicine
DX: R50.9 Fever, unspecified (principal)
CPT/HCPCS: 99199

== ENCOUNTER 2024-01-24 18:14 | Emergency (ER) | payer BC, SELFPAY ==
[2024-01-24 18:18] VITALS: BP 135/96; PULSE 80; RESP 16; TEMP 37; O2SAT 99
--- NOTE | 2024-01-24 18:28 | ED.FEMALEGU ---
HPI - Female Genitourinary General Chief complaint: Urogenital-Female Stated complaint: PAINFUL URINATION/LOW BACK PAIN/HEADACHE Source: patient, RN notes reviewed and old records reviewed Mode of arrival: ambulatory Limitations: no limitations History of Present Illness HPI Narrative: 28 year old female who presents to [facility] care with complaints of painful urination, urinary leaking when she coughs or laughs, some lower back pain, and suprapubic pressure. Patient reports no vaginal discharge but has had recent un protected sexual intercourse and wants to have BV, and STD testing done.. Patient reports that she had some headaches, denies any sore throat, sinus congestion or drainage, cough or any fevers. MD elicited complaint: UTI and other (reports past BV and Chlamydia) Onset (ago): day(s) (2) Location of symptoms: suprapubic and low back Severity scale (1-10): 5 Vaginal bleeding: none Treatment prior to arrival: acetaminophen Related Data Home Medications Medication Instructions Recorded Confirmed amlodipine 2.5 mg tablet 2.5 mg PO DAILY 04/19/22 01/24/24 escitalopram oxalate 10 mg tablet 10 mg PO DAILY 11/07/23 01/24/24 (Lexapro) Allergies Allergy/AdvReac Type Severity Reaction Status Date / Time Penicillins Allergy Unknown Rash, Verified 01/24/24 18:20 swelling nifedipine AdvReac Palpitation Verified 01/24/24 18:20 s Review of Systems Review of Systems: CONSTITUTIONAL: Denies malaise, chills, sweats, or fever. EYES: Denies visual changes, redness, or discharge. ENT: Reports no rhinorrhea, congestion, sinus pain, otalgia and no sore throat. CARDIOVASCULAR: Denies chest pain, palpitations, or edema. RESPIRATORY: Reports no cough.? Denies dyspnea. GASTROINTESTINAL: Reports lower pelvic abdominal pain,no nausea, vomiting, diarrhea SKIN: Denies rash or itching. MUSCULOSKELETAL: Denies myalgia.lower back pain reported NEUROLOGIC: Reports headache. All systems reviewed & are unremarkable except as noted in HPI and below PMFSH Past Medical History Medical History Anxiety Blood glucose abnormal Depression Hyperlipidemia Hypertension Panic disorder Seasonal allergies Surgical History Surgical History History of tonsillectomy and adenoidectomy 2006 Hx of nasal septoplasty 2020, with rhinoplasty [place] teeth extracted Family History Family History Father Hypertension Crohn's disease of both small and large intestine Alcoholism Mother Hypertension Breast cancer Dx age 18 Alcoholism Anxiety and depression Grandparent Heart disease Anxiety and depression Hypertension Sibling Anxiety and depression PCOS (polycystic ovarian syndrome) Social History Social History Social History: Smoking status: Never smoker Second hand tobacco smoke exposure: No Alcohol intake: former Drinks per week: 2 Substance use: never Living arrangements: with family Occupation/Education: occupation Gender identity (if verbalized by the patient): Female Sexual Orientation (if Verbalized by the Patient): Straight or Heterosexual Spiritual care concerns: No Agree to blood products: Yes Comments At time of signature, agree with nursing past medical, surgical, social and family history. There is no relevant family history pertinent to the presenting complaint Exam Narrative: GENERAL: Well-appearing, well-nourished, and in no acute distress. HEAD: Normocephalic EYES: PERRLA, conjunctivae clear ENT: Nares clear, turbinates edematous and erythematous, clear discharge. Mucous membranes moist. TM pearly skinner with dull light reflex bilaterally; no tragal tenderness. Oropharynx erythematous without lesions. Tonsils not pre
[2024-01-24 18:51] LABS: EDUAAPPEAR Clear; EDUABILI Negative; EDUABLOOD Negative; EDUACOLOR1 Yellow; EDUAGLUCOSE Negative; EDUAKETONE Negative; EDUALEUKO Negative; EDUANITRATE Negative; EDUAPH 5.5; EDUAPROTEIN Negative; EDUASPGRAVITY 1.005; EDUAUROBILI 0.2
[2024-01-25 20:43] LABS: Chlamydia trachomatis NOT DETECTED (NOT DETECTE); Neisseria gonorrhoeae PCR NOT DETECTED (NOT DETECTE)
[2024-01-27 12:44] LABS: Bacterial Vaginosis NEGATIVE (NEGATIVE)
== END 2024-01-24 18:59 | disposition home or self-care (01) ==
PROVIDERS: Emergency Provider Registered Nurse; PCP Family Medicine
DX: R30.0 Dysuria (principal); N76.0 Acute vaginitis; Z11.3 Encounter for screening for infections with a predominantly sexual mode of transmission; E78.5 Hyperlipidemia, unspecified; I10 Essential (primary) hypertension; F41.9 Anxiety disorder, unspecified; F32.A Depression, unspecified
CPT/HCPCS: 81003; 81513; 87086; 87491; 87591; 87661; 99213; G0463

== ENCOUNTER 2024-04-23 07:39 | Emergency (ER) | payer BC, SELFPAY ==
--- NOTE | ~2024-04-23 | CT_ITS ---
EXAMINATION: CT abdomen pelvis wo con DATE: 04/23/2024 09:20 INDICATION: Left kidney stone. TECHNIQUE: Computed tomography (CT) of the abdomen and pelvis was performed without intravenous contr ast. Automated exposure control and iterative reconstruction technique were employed. The dose-length product was 532.19 mGy-cm. COMPARISON: None. FINDINGS: The visualized portions of lung bases are clear without pneumonia or pleural effusion. The heart size is normal. No pericardial effusion. There is diffuse hepatic steatosis. The gallbladder, s pleen, pancreas, adrenal glands, and right kidney are normal. There is a 6 mm stone in left kidney. T here are no dilated loops of bowel. The appendix is normal. There are no pathologically enlarged lymp h nodes. There is physiologic fluid in the pelvis. There is mild lumbar spondylosis. IMPRESSION: 1. Nonobstructing left kidney stone. 2. Diffuse hepatic steatosis. Reviewed, dictated and finalized at location A. 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
[2024-04-23 07:41] VITALS: PULSE 86; RESP 16; TEMP 36.6; O2SAT 99
[2024-04-23 07:47] VITALS: BP 131/85
[2024-04-23 08:17] LABS: BEDSIDEPREGUCG Negative (Negative)
[2024-04-23 08:25] LABS: Basophils Absolute Auto 0.1 K/mm3 (0.0-0.1); Basophils Percent Auto 1.4 % (0.2-1.2); Eosinophils Absolute Auto 0.1 K/mm3 (0-0.3); Eosinophils Percent Auto 1.6 % (0-4.4); Hematocrit 39.1 % (37.0-47.0); Hemoglobin 13.4 g/dL (12.0-15.0); Immature Granulocyte Absolute 0.02 K/mm3 (0.00-0.031); Immature Granulocyte Percent A 0.3 % (0-0.5); Lymphocytes Absolute Auto 2.22 K/mm3 (0.9-3.2); Lymphocytes Percent Auto 38.4 % (18.3-44.2); Mean Corpuscular HGB Conc 34.3 g/dl (32-36); Mean Corpuscular Hemoglobin 29.8 pg (26-34); Mean Corpuscular Volume 86.9 fl (80-100); Mean Platelet Volume 10.2 fl (7.4-10.4); Monocytes Absolute Auto 0.5 K/mm3 (0.1-0.6); Neutrophils Absolute Auto 2.9 K/mm3 (1.3-6.7); Neutrophils Percent Auto 49.3 % (45.5-73.1); Platelet Count Result 276 k/mm3 (150-375); Red Cell Distribution Width 12.3 % (11.5-14.5); White Blood Count 5.8 K/mm3 (4.5-10.0)
[2024-04-23 08:26] LABS: Add Urine Microscopic? NO; Appearance Urine Clear (Clear); Bilirubin Urine Negative (Negative); Blood Urine Negative (Negative); Color Urine Yellow (Yellow); Glucose Urine UA Negative (Negative); Ketones Urine Trace mg/dL (Negative); Leukocyte Esterase Ur Negative LEU/UL (Negative); Nitrate Urine Negative (Negative); Protein Urine Negative (Negative); Specific Grav Ur 1.005 (1.001-1.035); Urobilinogen Urine 0.2 mg/dL (<2.0)
[2024-04-23 08:49] LABS: Alanine Aminotransferase 25 U/L (6-35); Albumin Level 4.8 g/dL (3.5-5.1); Alkaline Phosphatase 64 U/L (38-126); Anion Gap 8 mmol/L (4-12); Aspartate Amino Transferase 28 U/L (14-36); Bilirubin,Total 0.6 mg/dL (0.2-1.3); Blood Urea Nitrogen 7 mg/dL (7-17); Calcium 9.1 mg/dL (8.4-10.2); Carbon Dioxide 26 mmol/L (22-30); Chloride 104 mmol/L (98-107); Estimated Glomerular Filt Rate > 60; Glucose 105 mg/dL (65-110); Lipase 29 U/L (23-300); Potassium 3.4 mmol/L (3.4-5.0); Sodium 138 mmol/L (137-145)
[2024-04-23 09:48] VITALS: BP 113/68; PULSE 69; RESP 18; O2SAT 99
--- NOTE | 2024-04-23 09:51 | ED.ABDPAIN ---
HPI - Abdominal Pain General Chief Complaint: Abdominal Pain Stated Complaint: abdominal pain Time Seen by Provider: 04/23/24 08:36 History of Present Illness HPI narrative: 29-year-old female presenting to the emergency room with chief complaint of some mild left-sided sharp pain and vague abdominal discomfort. She states she had a kidney stone diagnosed in February in the left side that she does not believe this past yet. She states she was having some restlessness throughout the night and thinks it could be related to that. She denies any urinary complaints such as fever, back pain, urinary symptoms such as dysuria, hematuria, frequency. Denies any chance of or trauma. Was otherwise in her normal state of health. Related Data Home Medications Medication Instructions Recorded Confirmed amlodipine 2.5 mg tablet 2.5 mg PO DAILY 04/19/22 01/24/24 escitalopram oxalate 10 mg tablet 10 mg PO DAILY 11/07/23 01/24/24 (Lexapro) Allergies Allergy/AdvReac Type Severity Reaction Status Date / Time Penicillins Allergy Unknown Rash, Verified 04/23/24 07:45 swelling nifedipine AdvReac Palpitation Verified 04/23/24 07:45 s Review of Systems Review of Systems: As reviewed above in HPI PMFSH Past Medical History Medical History Anxiety Blood glucose abnormal Depression Hyperlipidemia Hypertension Panic disorder Seasonal allergies Surgical History Surgical History History of tonsillectomy and adenoidectomy 2006 Hx of nasal septoplasty 2020, with rhinoplasty [place] teeth extracted Family History Family History Father Hypertension Crohn's disease of both small and large intestine Alcoholism Mother Hypertension Breast cancer Dx age 18 Alcoholism Anxiety and depression Grandparent Heart disease Anxiety and depression Hypertension Sibling Anxiety and depression PCOS (polycystic ovarian syndrome) Social History Social History Social History: Smoking status: Never smoker Second hand tobacco smoke exposure: No Alcohol intake: former Drinks per week: 2 Substance use: never Living arrangements: with family Occupation/Education: occupation Gender identity (if verbalized by the patient): Female Sexual Orientation (if Verbalized by the Patient): Straight or Heterosexual Spiritual care concerns: No Agree to blood products: Yes Exam Narrative: GENERAL: [Well-appearing, well-nourished, and in no acute distress.] HEAD: [Normocephalic, atraumatic.] EYES: [PERRLA and EOMI.] ENT: Nares clear, no rhinorrhea or epistaxis. Mucous membranes moist. NECK: Supple. CHEST: [Clear to auscultation. No respiratory distress.] HEART: [Regular rate and rhythm]. No murmur heard. [Normal peripheral pulses.] ABDOMEN: [Soft, nondistended], [nontender], [No rigidity or guarding] EXTREMITIES: Normal range of motion. [No edema.] SKIN: Warm, dry, no rash. NEURO: [No focal deficits]. Alert and oriented [x3.] PSYCH: [Normal mood and affect.] Course Vital Signs Vital signs: Vital Signs Temperature 36.6 C 04/23/24 07:41 Pulse Rate 86 04/23/24 07:41 Respiratory Rate 16 04/23/24 07:41 Pulse Oximetry 99 04/23/24 07:41 Oxygen Delivery Room Air 04/23/24 07:41 Temperature 36.6 C 04/23/24 07:41 Pulse Rate 69 04/23/24 09:48 Respiratory Rate 18 04/23/24 09:48 Blood Pressure 113/68 04/23/24 09:48 Pulse Oximetry 99 04/23/24 09:48 Oxygen Delivery Room Air 04/23/24 07:41 MDM - Abdominal Pain MDM Narrative Medical decision making narrative: 29-year-old otherwise healthy appearing female with history of chronic hypertension is managed well at home. She presents to the emergency room with chief complaint of some vague sharp pain in her left side and vague abdominal discomfort that radiates. No urinary complaints, fever, chills. She was otherwise in her normal state of health. She was diagnosed with a kidney stone approximately 1/2 months ago that she does not believe this past year. She has a benign examination without any fever, vital sign concerns, abdominal pain distension or tenderness. She overall appears well not any acute distress. Differential is broad but does include urinary infection, remaining kidney stone, renal colic, nonspecific gastroenteritis and less likely any acute intra-abdominal process such as pancreatitis, appendicitis or gallbladder disease. Laboratory studies were obtained including CBC, CMP, urinalysis, urine test. She is presently asymptomatic during my initial encounter. A CT scan without contrast was obtained after negative test. Laboratory studies revealed no leukocytosis or anemia. Normal platelet level. Normal renal function panel, normal hepatic function panel, negative lipase, urine without signs of active infection or blood cells. Negative lipase. CT scan was independently reviewed by myself and also to provide radiology. There is a nonobstructing 0.6 cm stone in the left kidney and diffuse hepatic steatosis. Patient's symptomatology is likely secondary to renal colic but given the nonobstructing H with the stone with normal labs and normal urine can be safely followed up with outpatient with Urology. Will be sending her home with some Zofran for as needed nausea and encouraged to take NSAIDs and Tylenol for analgesia. She was previously on Flomax for this and did not tolerate it with her blood pressure medications so this will not be prescribed. Patient was agreeable to plan of care and safely discharged home at this time. Differential Diagnosis Differential diagnosis: Likely abdominal pain, acute appendicitis, calculus of kidney, constipation, diverticulitis, gastroenteritis, pancreatitis, small bowel obstruction and other Medical Records Attestation: I reviewed the patient's medical records. Lab Data Attestation: I reviewed the patient's lab results. 04/23/24 08:10 04/23/24 08:10 Labs: Lab Results 04/23/24 04/23/24 Range/Units 08:10 08:15 WBC 5.8 (4.5-10.0) K/mm3 RBC 4.50 (4.2-5.4) M/mm3 Hgb 13.4 D (12.0-15.0) g/dL Hct 39.1 (37.0-47.0) % MCV 86.9 (80-100) fl MCH 29.8 (26-34) pg MCHC 34.3 (32-36) g/dl RDW 12.3 (11.5-14.5) % Plt Count 276 (150-375) k/mm3 MPV 10.2 (7.4-10.4) fl Immature Gran % (Auto) 0.3 (0-0.5) % Neut % (Auto) 49.3 (45.5-73.1) % Lymph % (Auto) 38.4 (18.3-44.2) % [place] % (Auto) 9.0 H (2.6-8.5) % Eos % (Auto) 1.6 (0-4.4) % Baso % (Auto) 1.4 H (0.2-1.2) % Lymph # (Auto) 2.22 (0.9-3.2) K/mm3 [place] # (Auto) 0.5 (0.1-0.6) K/mm3 Eos # (Auto) 0.1 (0-0.3) K/mm3 Baso # (Auto) 0.1 (0.0-0.1) K/mm3 Abs Immat Gran (auto) 0.02 (0.00-0.031) K/mm3 Absolute Neuts (auto) 2.9 (1.3-6.7) K/mm3 Absolute Nucleated RBC 0.000 (0.0-0.012) K/mm3 Nucleated RBC % 0.0 (0.0-0.2) % Sodium 138 (137-145) mmol/L Potassium 3.4 (3.4-5.0) mmol/L Chloride 104 (98-107) mmol/L Carbon Dioxide 26 (22-30) mmol/L Anion Gap 8 (4-12) mmol/L BUN 7 (7-17) mg/dL Creatinine 0.60 L (0.7-1.0) mg/dL Estim Creat Clear Calc Not Reportable Estimated GFR > 60 (59 - ) Glucose 105 (65-110) mg/dL Calcium 9.1 (8.4-10.2) mg/dL Total Bilirubin 0.6 (0.2-1.3) mg/dL AST 28 (14-36) U/L ALT 25 (6-35) U/L Alkaline Phosphatase 64 (38-126) U/L Total Protein 8.0 (6.3-8.2) g/dL Albumin 4.8 (3.5-5.1) g/dL Lipase 29 (23-300) U/L Urine Color Yellow (Yellow) Urine Appearance Clear (Clear) Urine pH 7.0 (5.0-9.0) Ur Specific [place] 1.005 (1.001-1.035) Urine Protein Negative (Negative) mg/dL Urine Glucose (UA) Negative (Negative) mg/dL Urine Ketones Trace H (Negative) mg/dL Ur Blood (Man) Negative (Negative) Urine Nitrate Negative (Negative) Urine Bilirubin Negative (Negative) Urine Urobilinogen 0.2 (<2.0) mg/dL Leukocyte Esterase Rfl Negative (Negative) MILENA/UL POC Urine HCG, Qual Negative (Negative) Imaging Data Attestation: I personally reviewed and interpreted this imaging study as follows: Radiologist's impression: ITS Impressions Abdomen/Pelvis CT 04/23/24 09:22 IMPRESSION: 1. Nonobstructing left kidney stone. 2. Diffuse hepatic steatosis. Discharge Plan Discharge Clinical Impression: Renal colic on left side, Kidney stone on left side Patient Disposition: Home, Self-Care Condition: Stable Instructions: Antibiotic Form, Kidney Stones (ED), Renal Colic (ED), How to Strain Your Urine (ED), Lithotripsy (DC) Additional Instructions: Your kidney stone has not migrated since her last visit. We have referred you to our Urology team to help with this on outpatient basis. Return with any new or intractable pain, nauseousness vomiting or any other concerns. Follow up on outpatient basis with your primary doctor and Urology. Prescriptions: New ibuprofen 800 mg tablet 800 mg PO TID PRN (Reason: pain) Qty: 30 0RF ondansetron 4 mg tablet,disintegrating 4 mg PO Q8H PRN (Reason: nausea and vomiting) Qty: 10 0RF No Action doxycycline hyclate 100 mg tablet 100 mg PO BID Qty: 14 0RF metronidazole 500 mg tablet 500 mg PO Q12H Qty: 14 0RF Rx Instructions: absolutely do not drink any alcohol while taking. Patient is not to take medication unless testing comes back positive, she will be notified around the amlodipine 2.5 mg tablet 2.5 mg PO DAILY escitalopram oxalate [Lexapro] 10 mg tablet 10 mg PO DAILY Follow-up/Referrals: Edelmira Avila MD [Primary Care Provider] - Time of Disposition: 09:59
== END 2024-04-23 10:23 | disposition home or self-care (01) ==
PROVIDERS: Emergency Provider Student in an Organized Health Care Education/Training Program; PCP Family Medicine
DX: N20.0 Calculus of kidney (principal); I10 Essential (primary) hypertension; E78.5 Hyperlipidemia, unspecified; F41.9 Anxiety disorder, unspecified; F32.A Depression, unspecified; F41.0 Panic disorder [episodic paroxysmal anxiety]; Z79.899 Other long term (current) drug therapy; K76.0 Fatty (change of) liver, not elsewhere classified
CPT/HCPCS: 36415; 74176; 80053; 81003; 81025; 83690; 85025; 99284

== ENCOUNTER 2025-02-20 15:34 | Emergency (ER) | payer BC, SELFPAY ==
--- NOTE | ~2025-02-20 | CT_ITS ---
EXAMINATION: CT brain wo con COMPARISON: None HISTORY: temporary vison loss TECHNIQUE: Axial images were obtained through the brain without IV contrast. CT scan performed using dose optimization techniques including the following automated exposure control; adjustment of mA and/or kV; use of iterative reconstruction technique. Automatic exposure control was used to reduce radiation dose. Permanent radiation dose record is archived to PACS. FINDINGS: No acute infarct or parenchymal hemorrhage. No abnormal mass or mass effect. No midline shift. No extra-axial fluid collections. No hydrocephalus. . Mastoid air cells unremarkable. Moderate left maxillary sinusitis with underlying polyp formation suspected. No acute fracture. No significant facial or scalp soft tissue swelling evident. No radiopaque foreign body is seen. Impression: 1.No acute intracranial abnormality. Reviewed, dictated and finalized at location P. Impression: 1.No acute intracranial abnormality.
[2025-02-20 15:36] VITALS: BP 160/112; PULSE 104; RESP 19; TEMP 37.4; O2SAT 100
[2025-02-20 15:42] VITALS: BP 156/106; PULSE 93; RESP 16; TEMP 37.4; O2SAT 100
[2025-02-20 15:44] VITALS: RESP 15; O2SAT 100
[2025-02-20 15:45] VITALS: BP 147/91; PULSE 93; RESP 20; TEMP 37.4; O2SAT 99
[2025-02-20] MEDS: PROCHLORPERAZINE EDISYLATE 10 MG/2 ML VIAL IM (17:26)
[2025-02-20] MEDS: ACETAMINOPHEN 500 MG TABLET 1000 MG PO (17:27)
--- OUTSIDE RECORDS SUMMARY | 2025-02-20 17:36 | XMS_ITS | Clinical Summary ---
Author Organization [facility] [employer] Address [address] [place] [address] Care Team Providers Care Small Offset Printer Name Role Phone Edelmira Avila MD Primary Care Provider + Source Comments [facility] [employer],non-owned Affiliates and Associated Physician Practices is amultiple site organization consisting of ambulatory clinics and hospital sitesin [place], [place], [place] and [place]. This disclosure is being madepursuant to the Care Everywhere program and may not contain all information available regarding this patient. Last updated 18.[facility] [employer] Allergies Active Allergy Reactions Criticality Noted Date Comments Nifedipine Palpitations 12/07/2021 Penicillins Urticaria Low 11/18/2010 Medications * Be aware that medications may not be up to date on this document. Alwaysverify current medications with the patient. Vit-DSS-Fe Fum-FA ( vitamin with iron) tablet Take 1 tablet by mouth once daily Active aspirin (Aspirin) 81 MG chew tablet Take 162 mg by mouth once daily Active escitalopram (Lexapro) 10 MG tabletIndicatio ns:Generalized Anxiety Disorder Take 10 mg by mouth once daily Reasons: Generalized Anxiety Disorder Active famotidine (Pepcid) 20 MG tabletIndicatio ns:Heartburn Take 1 (one) tablet by mouth every 12 hours Reasons: Heartburn 60 tablet 5 2 Active tamsulosin (Flomax) 0.4 MG capsule Take 1 (one) capsule by mouth once daily after breakfast for 14 days At the same time every day after a meal. 14 capsule Active Active Problems Problem Noted Date Diagnosed Date Diet controlled gestational diabetes mellitus (GDM) in third trimester 03/15/2022 Positive JOHNATHAN (antinuclear antibody) 04/11/2013 Arthralgia 04/11/2013 [place] 02/18/2013 Family history of breast cancer in mother 2012 Overview (02/18/2013): At age 19 Essential hypertension, malignant 01/12/2011 Immunizations Immunization Administration Dates Next Due INFLUENZA VACCINE 02/28/2013 Family History Medical History Relation Name Comments Breast Cancer at or under age 50 Mother Relation Name Status Comments Mother Social History Tobacco Use Types Packs/Day Years Used Date Smoking Tobacco: Never Passive Smoke Exposure: Yes Tobacco Cessation:Counseling Given: No Alcohol Use Standard Drinks/Week Comments Yes 3 (1 standard drink = 0.6 oz pur e alcohol) 2-3 times weekly Comments No Sex and Gender Information Value Date Recorded Sex Assigned at Not on file 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 Gender Identity Not on file Sexual Orientation Not on file Last Filed Vital Signs Vital Sign Reading Time Taken Comments Blood Pressure 122/62 03/05/2024 2:17 PM CDT Pulse 87 03/05/2024 11:30 AM CDT Temperature 36.7 C (98 F) 03/05/2024 11:30 AM CDT Respiratory Rate 18 03/05/2024 2:17 PM CDT Oxygen Saturation 100% 03/05/2024 2:18 PM CDT Inhaled Oxygen Concentration - - Weight 78 kg (172 lb) 03/05/2024 11:30 AM CDT Height 152.4 cm (5') 03/05/2024 11:30 AM CDT Body Mass Index 33.59 03/05/2024 11:30 AM CDT Plan of Treatment Health Maintenance Due Date Last Done Comments HIV SCREENING 2012 DTAP/TDAP/TD VACCINES (1 - Tdap) 2016 HEPATITIS B VACCINE (1 of 3 - 19+ 3-dose series) 2016 PAP SMEAR 2018 HPV VACCINE (1 - 3-dose SCDM series) 2024 DEPRESSION SCREENING 05/29/2024 COVID-19 VACCINE (3 - 2024-2 6 season) 2025 10/28/2020, 10/05/2020 INFLUENZA VACCINE (#1) 2025 , 04/11/2019, 02/28/2013 ZOSTER VACCINE (1 of 2) 2047 HEPATITIS C SCREENING Completed 04/01/2020 HIB VACCINE Aged Out No longer eligi ble based on patient's age to complete this topic MENINGOCOCCAL (Group B) VACCINE SHARED DECISION-MAKING Aged Out No longer eligible based on patient's age to complete this topic MENINGOCOCCAL GROUPS A/C/Y/W VACCINE Aged Out No longer eligible b ased on patient's age to complete this topic PNEUMOCOCCAL VACCINE Aged Out No long er eligible based on patient's age to complete this topic Insurance [place] MEDICAID - [facility] [address] [place] [id number] [place] MEDICA[place] - [employer] [place] [id number] Care Teams Small Offset Printer Relationship Specialty Start Date End Date Edelmira Avila MD [address] [place] [address] PCP - General 04/06/22
--- OUTSIDE RECORDS SUMMARY | 2025-02-20 17:36 | XMS_ITS | Clinical Summary ---
Author Organization [facility] [address] Address [address] [place] [address] Care Team Providers Care Process Lead Name Role Phone Edelmira Avila MD Primary Care Provider Allergies Active Allergy Reactions Criticality Noted Date Comments Penicillins Anaphylaxis,Hives,It yaima,Rash,Swellin g High 02/14/2003 Medications escitalopram (LEXAPRO) 10 mg tablet 2 Active amLODIPine (NORVASC) 2.5 mg tabletIndications :Essential hypertension TAKE 1 TABLET(2.5 MG) BY MOUTH DAILY 90 tablet 3 4 Active metroNIDAZOLE (METROGEL) 0.75 % (37.5mg/5 gram) vaginal gelIndications:Ba cterial Vaginosis Apply to vagina nightly for 5 nights. 70 g 4 Active Active Problems Problem Noted Date Diagnosed Date Diet controlled gestational diabetes mellitus (GDM) in third trimester 03/15/2022 History of COVID-19 01/24/2022 29 weeks gestation of 10/21/2021 Hypercholesterolemia 10/21/2021 Dizziness 07/05/2021 Palpitations 07/05/2021 Essential hypertension 07/05/2021 Anxiety and depression 12/04/2020 Obsessive-compulsive disorder 12/04/2020 Nasal valve collapse 09/23/2020 Arthralgia 04/11/2013 Knee pain, left 04/06/2012 Positive antinuclear antibody 04/06/2012 Arthralgia of ankle 07/05/2011 Pain of foot 07/05/2011 Sprain of ankle 06/22/2011 Medical History Medical History Date Comments Dizziness Hypertension Hyperlipidemia Anxiety GERD (gastroesophageal reflux disease) 07/2019 Brain concussion Depression Menstrual problem Family History Medical History Relation Name Comments Alcohol abuse Father Urbano Jackie Drug abuse Father Urbano Catron Hypertension Father Urbano Catron Hypertension Maternal Grandfather Arnold Labrier Hyperlipidemia Maternal Grandmother Ear Fine Alcohol abuse Mother Julianne Catron Cancer Mother Julianne Catron Depression Mother Julianne Jackie Hypertension Mother Julianne Catron Mental illness Mother Julianne Jackie Hypertension Mother's Brother Flakito Guzmanbins Heart disease Other Early Paternal Grandfather Grandpa Catron Heart attack Paternal Grandfather Grandpa Catron Hypertension Paternal Grandmother Radhika Rivera Relation Name Status Comments Father Urbano Catron Maternal Grandfather Arnold Labrier Maternal Grandmother Era Fine Mother Julianne Catron Mother's Brother Flakito Fox Other Paternal Grandfather Grandsayda Jackie Paternal Grandmother Radhika Rivera Social History Tobacco Use Types Packs/Day Years Used Date Smoking Tobacco: Never Cigarettes Smokeless Tobacco: Never Tobacco Cessation:Counseling Given: Not Answered Comments Unknown Sex and Gender Information Value Date Recorded Sex Assigned at Not on file 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 Gender Identity Not on file Sexual Orientation Not on file Obstetrics History Para Term AB IAB SAB Ectopic Multiple Livin g Live Births 1 0 0 0 0 0 0 0 Date Outcome GA Total Labor Labor/2nd/3rd Weight Sex Type Anes PTL Cynthia A1 A5 Name Clin Last Filed Vital Signs Vital Sign Reading Time Taken Comments Blood Pressure 116/84 03/05/2024 9:32 AM CDT Pulse 73 03/05/2024 9:32 AM CDT Temperature 36.8 C (98.2 F) 03/05/2024 9:32 AM CDT Respiratory Rate 18 03/05/2024 9:32 AM CDT Oxygen Saturation 99% 03/05/2024 9:32 AM CDT Inhaled Oxygen Concentration - - Weight 78 kg (172 lb) 03/05/2024 9:32 AM CDT Height 152.4 cm (5') 03/05/2024 9:32 AM CDT Body Mass Index 33.59 03/05/2024 9:32 AM CDT Plan of Treatment Health Maintenance Due Date Last Done Comments Cervical Cancer Screening 1997 Depression Screening 1997 Hepatitis C Screening 1997 DTaP/Tdap/Td Vaccine (1 - Tdap) 2008 Varicella Vaccines (1 of 2 - 13+ 2-dose series) 2010 Hepatitis B Screening 2015 Regular Well Visit/Exam 18-64 2015 HPV Vaccines (1 - 3-dose SCD M series) 2024 Covid-19 Vaccine (3 - 2024-2 6 season) 2025 10/28/2020, 10/05/2020 Influenza Vaccine (#1) 2025 , 04/11/2019, 02/28/2013 Pneumococcal vaccine <65 Aged Out No longer eligible based on patient's age to complete this topic Insurance Tok[employer]n [place] [employer] [place] [facility] Care Teams Process Lead Relationship Specialty Start Date End Date Edelmira Avila MD [address] [facility] [address] [place] [address] PCP - General Family Medicine 06/10/21
--- OUTSIDE RECORDS SUMMARY | 2025-02-20 17:36 | XMS_ITS | Encounter Summary ---
Author Organization [facility] [employer] Address [address] [facility] [place] [address] Care Team Providers Care Net Coordinator Name Role Phone Opal Christensen MD Primary Care Provider [phone] Edelmira Avila MD Primary Care Provider + Encounter Details Date Type Department Care Team (Late st Contact Info) Description 02/25/2013 Telephone [facility] Pediatrics - Surgery [address] [place] [address] Leonor Corea MD [address] [place] [address] [facility] [place] [address] Social History Tobacco Use Types Packs/Day Years Used Date Smoking Tobacco: Never Assessed Comments No Sex and Gender Information Value Date Recorded Sex Assigned at Not on file Legal Sex Female 5:45 AM [employer]WORK [employer] Gender Identity Not on file Sexual Orientation Not on file documented as of this encounter Miscellaneous Notes * Telephone Encounter - Leonor Corea MD - 02/25/2013 1:23 PM CDT Spoke with mother. Relayed MRI results. No indication for surgery at this time. Will plan for follow-up in 1 year for repeat exam and possible repeat imaging. documented in this encounter Plan of Treatment Not on file documented as of this encounter Visit Diagnoses Not on filedocumented in this encounter Care Teams Net Coordinator Relationship Specialty Start Date End Date Opal Christensen MD [address] [facility] [address] [place] [address] PCP - General 11/18/10 04/05/22 Edelmira Avila MD [address] [place] [address] PCP - General 04/06/22 documented as of this encounter
[2025-02-20] MEDS: diphenhydrAMINE HCl CAP 25 MG CAPSULE PO (17:38)
--- NOTE | 2025-02-20 18:06 | ED_ITS ---
HPI - General Adult General Chief complaint: Recheck/Abnormal Lab/Rx Stated complaint: VISUAL CHANGES, ELEVATED BP Time Seen by Provider: 02/20/25 16:26 History of Present Illness HPI narrative: This is a 29-year-old female presenting to the ED with complaint chief complaint of headache and transient vision loss. Patient says she was at home working when she developed a headache and vision loss in her right eye. She says it felt like a curtain came over her eye. This lasted for several minutes before completely resolving and she now has normal vision. It was painless. The patient has had this happened 2-3 times per month over the last 3-4 months. She cannot think of any triggering events. She is unsure if that is always accompanied by headache is she has had headaches her entire life. She does not have any other neurologic deficits. She has not seen an veneer stock grader for this. She did not seek medical care on any of the other previous episodes. Patient's headache is described as a pressure in the front her head. This is her typical headache. 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 Related Data Home Medications ?Medication ?Instructions ?Recorded ?Confirmed ?Last Taken ?Type amlodipine 2.5 mg tablet 2.5 mg PO DAILY 04/19/22 Unknown History escitalopram oxalate 10 mg tablet 10 mg PO DAILY 11/0601/24/24 Unknown History (Lexapro) Allergies Allergy/AdvReac Type Severity Reaction Status Date / Time Penicillins Allergy Unknown Rash, Verified 02/20/25 15:34 swelling nifedipine AdvReac Palpitation Verified 02/20/25 15:34 s PMFSH Past Medical History Medical History HSV-1 infection Blood glucose abnormal Panic disorder Depression Hyperlipidemia Seasonal allergies Anxiety Hypertension Surgical History Surgical History [place] teeth extracted Hx of nasal septoplasty 2020, with rhinoplasty History of tonsillectomy and adenoidectomy 2006 Family History Family History Father Hypertension Crohn's disease of both small and large intestine Alcoholism Mother Hypertension Breast cancer Dx age 18 Alcoholism Anxiety and depression Grandparent Heart disease Anxiety and depression Hypertension Sibling Anxiety and depression PCOS (polycystic ovarian syndrome) Social History Social History (Updated 11/01/24 @ 10:46 by Britton Cunningham MA) Social History: Smoking status: Never smoker Second hand tobacco smoke exposure: No Alcohol intake: current Drinks per week: 2 Substance use: never Do You Feel Safe in your Home?: Yes Lack of Transportation: No Lack of Food: Never True Current Housing: I Have Housing Concerned About Future Housing: No Difficulty Paying Gas/Electric Bills: No Difficulty Paying for Meds: No Currently Unemployed: No Education: Bachelor's Degree Difficulty w/ Childcare or Family Care: No Living arrangements: with family Occupation/Education: occupation 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 Head: atraumatic. EYES: EOMI, PERRLA NOSE: Atraumatic NECK: Trachea midline RESPIRATORY: No increased rate of breathing, CTAB CARDIOVASCULAR: RRR, clear to auscultate ABDOMINAL: Non-distended soft nontender MUSCULOSKELETAl: No obvious deformities NEURO: Alert. Cranial nerves 2-12 grossly intact. Sensation light touch, motor function cerebellar function intact for 4 extremities. Gait exam was normal. IOP 20 SKIN:: Warm, dry. Normal color PSYCHIATRIC: Normal affect Course Vital Signs Vital signs: Vital Signs Temperature 99.3 F 02/20/25 15:36 Pulse Rate 104 H 02/20/25 15:36 Respiratory Rate 19 02/20/25 15:36 Blood Pressure 160/112 H 02/20/25 15:36 Pulse Oximetry 100 02/20/25 15:36 Oxygen Delivery Room Air 02/20/25 15:36 Temperature 99.3 F 02/20/25 15:45 Pulse Rate 93 02/20/25 15:45 Respiratory Rate 20 02/20/25 15:45 Blood Pressure 147/91 H 02/20/25 15:45 Pulse Oximetry 99 02/20/25 15:45 Oxygen Delivery Room Air 02/20/25 15:42 Medical Decision Making MDM Narrative Medical decision making narrative: -Course: 29-year-old female presenting with transient vision loss and headache. Physical exam is unremarkable. Visual acuity is now normal. Eye exam showed normal intra-ocular pressures. Pupils respond appropriately to light. Extraocular eye movements intact, pupils reacting typically and he was appropriate CT brain was negative. Patient patient's headache was treated with a migraine cocktail with improvement. She is not resting comfortably in bed with no symptoms. Differential for transient vision loss exam include amarosis fugax (low risk for vascular disease) complex migraine, retinal artery spasm. As this has been having repeatedly over the last several months with complete resolution on its own I do not think she needs emergent evaluation by an veneer stock grader. I do want her to see an veneer stock grader in the next 24-48 hours. This was explained to the patient she is agreeable with this plan. Patient discharged. Vital Signs Vital Signs: Vital Signs Temperature 99.3 F 02/20/25 15:36 Pulse Rate 104 H 02/20/25 15:36 Respiratory Rate 19 02/20/25 15:36 Blood Pressure 160/112 H 02/20/25 15:36 Pulse Oximetry 100 02/20/25 15:36 Oxygen Delivery Room Air 02/20/25 15:36 Temperature 99.3 F 02/20/25 15:45 Pulse Rate 93 02/20/25 15:45 Respiratory Rate 20 02/20/25 15:45 Blood Pressure 147/91 H 02/20/25 15:45 Pulse Oximetry 99 02/20/25 15:45 Oxygen Delivery Room Air 02/20/25 15:42 Discharge Plan Discharge Clinical Impression: Migraine, Transient visual loss Patient Disposition: Home Condition: Stable Instructions: Antibiotic Form, Migraine Headache (ED) Additional Instructions: You were seen emergency department for a headache and transient vision loss. Please follow-up with the veneer stock grader listed below and 24-48 hours for further evaluation of your transient vision loss. If you develop permanent vision loss, slurred speech difficulty speaking swallowing or weakness in any extremity a white return to emergency department immediately. Please call [facility] @ [phone] to arrange f/u within 24-48 hrs. Patient Language: Citizen Of [place] Prescriptions: No Action amlodipine 2.5 mg tablet 2.5 mg PO DAILY escitalopram oxalate [Lexapro] 10 mg tablet 10 mg PO DAILY drospirenone-ethinyl estradiol [JULIANNA (28)] 3-0.02 mg tablet 1 tablet PO DAILY Qty: 84 3RF Follow-up/Referrals: PHYSICIAN,FOOD PREPARATION KITCHEN AIDE [Primary Care Provider, Internal Medicine]
[2025-02-20 18:37] VITALS: BP 132/74; PULSE 82; RESP 16; O2SAT 100
== END 2025-02-20 18:40 | disposition home or self-care (01) ==
PROVIDERS: Emergency Provider Emergency Medicine
DX: G43.909 Migraine, unspecified, not intractable, without status migrainosus (principal); H53.129 Transient visual loss, unspecified eye
CPT/HCPCS: 70450; 96372; 99284; A9270; J0780